=== PATIENT | female | born 1945 | race Caucasian/White ===

== ENCOUNTER 2019-12-16 11:37 | Outpatient (CLI) | payer MEDICARE, SELFPAY ==
--- NOTE | 2019-12-16 12:01 | XR_ITS ---
WS: [id number] RIGHT SHOULDER: 3 VIEW(S) TECHNIQUE: Internal and external rotation with Y view. HISTORY: PAIN IN RIGHT SHOULDER COMPARISON: None available. Mild narrowing of the AC joint. Bony hypertrophy from the distal inferior clavicle. Glenohumeral joint is negative. Mild thickening along the RIGHT minor fissure is stable. XR/XR shoulder RT min 2V* [id number] IMPRESSION: Mild AC joint arthritis.
== END 2019-12-16 11:38 | disposition home or self-care (01) ==
LOC: RADWPI 11:44
PROVIDERS: Family Provider Family Medicine; PCP Nurse Practitioner Family; Visit Provider Nurse Practitioner Family
DX: M19.011 Primary osteoarthritis, right shoulder (principal)
CPT/HCPCS: 73030

== ENCOUNTER 2020-01-21 11:01 | Outpatient (CLI) | payer MEDICARE, SELFPAY ==
--- NOTE | 2020-01-21 11:06 | XR_ITS ---
WS: [id number] SCREENING DEXA SCAN [employer] CLINICAL INFORMATION: POST MENOPAUSAL OSTEOPOROSIS COMPARISON: June 13, 2017 FINDINGS: The L1-L4 bone mineral density measures 0.926 g/cm2. This corresponds to a T score score of -2.1 and Z score of -1.5. Left femoral neck bone mineral density measures 0.846 g/cm2. This corresponds to a T score of -1.3 an d Z score of -0.4. Right femoral neck bone mineral density measures 0.832 g/cm2. This corresponds to a T score -1.4of an d Z score of -0.5. Mean femoral neck bone mineral density measures 0.839 g/cm2. This corresponds to a T score of -1.3 an d Z score of -0.4. XR/XR DEXA axial skeleton* [id number] IMPRESSION: Osteopenia Patient's FRAX calculated 10 year probability for major osteoporotic fracture i s 22.5 % and osteoporotic hip fracture is 12.2%. Bone mineral density in the lumbar spine has decreased -2.3% and decreased -4.6 % in the femoral necks since 2017.
--- NOTE | 2020-01-21 11:50 | MM_ITS ---
WS: [id number] Bilateral screening digital mammogram, 01/21/2020 Clinical Data: SCREENING Comparison: 06/13/2017. Findings: The breast parenchymal pattern shows fat replacement. No spiculated masses or clustered calcification s are seen. There are no secondary signs of carcinoma. Benign calcifications are in the right breast. MM/[place] [id number] Impression: 1. Negative bilateral mammogram unchanged. 2. Recommend annual screening mammograms. BIRADS: 1-Negative FOLLOW UP: 1 Year Follow-up The CAD card checker was used.
== END 2020-01-21 11:02 | disposition home or self-care (01) ==
LOC: RADSHAW 11:04
PROVIDERS: Family Provider Family Medicine; PCP Nurse Practitioner Family; Visit Provider Nurse Practitioner Family
DX: Z12.31 Encounter for screening mammogram for malignant neoplasm of breast (principal); Z13.820 Encounter for screening for osteoporosis; Z78.0 Asymptomatic menopausal state
CPT/HCPCS: 77067; 77080

== ENCOUNTER → 2020-11-25 09:09 | Outpatient (BNVA) | payer MEDICARE, SELFPAY | PROVIDERS: Family Provider Family Medicine; PCP Nurse Practitioner Family; Visit Provider Urology | DX: R31.29 Other microscopic hematuria (principal) | CPT/HCPCS: 81003; 88112 ==

== ENCOUNTER 2021-01-06 11:45 | Outpatient (CLI) | payer MEDICARE, SELFPAY ==
--- NOTE | 2021-01-06 12:00 | US_ITS ---
WS: [id number] RENAL ULTRASOUND HISTORY: FLANK PAIN COMPARISON: None available. TECHNIQUE: 2-D and color Doppler imaging of the kidney submitted. Right kidney: 10.6 cm x 4.1 cm x 4.7 cm. Normal echogenicity with no hydronephrosis or mass. Left kidney: 10.9 cm x 4.4 cm x 4.8 cm. Normal echogenicity with no hydronephrosis or mass. Aorta: Normal. Urinary Bladder: Normal distention. US/US renal BI* [id number] IMPRESSION: Normal renal ultrasound.
--- NOTE | 2021-01-06 12:45 | XR_ITS ---
WS: [id number] KUB, AP view, 01/06/2021 Clinical Data: FLANK PAIN Comparison: None. Findings: No abnormal intraabdominal masses or calcifications are seen. There is no dilatated small bowel or ev idence of obstruction. There are phleboliths in the true pelvis. There are clips in the right upper quadrant from a cholecys tectomy. XR/XR KUB [id number] Impression: Negative KUB.
== END 2021-01-06 11:46 | disposition home or self-care (01) ==
PROVIDERS: Visit Provider Urology
DX: R10.9 Unspecified abdominal pain (principal); R31.21 Asymptomatic microscopic hematuria
CPT/HCPCS: 74018; 76770; 81003

== ENCOUNTER → 2021-03-22 09:30 | Outpatient (BNVA) | payer MEDICARE, SELFPAY | PROVIDERS: PCP Family Medicine; Visit Provider Specialist | DX: Z96.651 Presence of right artificial knee joint (principal); M17.12 Unilateral primary osteoarthritis, left knee | CPT/HCPCS: 73560; 73565 ==

== ENCOUNTER → 2023-01-10 08:15 | Outpatient (BNVA) | payer MEDICARE, SELFPAY | PROVIDERS: PCP Family Medicine; Visit Provider Clinical Nurse Specialist Adult Health | DX: R35.0 Frequency of micturition (principal); N30.01 Acute cystitis with hematuria | CPT/HCPCS: 81000; 87077; 87086; 87184 ==

== ENCOUNTER 2023-02-28 14:57 | Outpatient (CLI) | payer MEDICARE, SELFPAY ==
--- NOTE | 2023-02-28 15:30 | CT_ITS ---
WS: [id number] CT ABDOMEN PELVIS TECHNIQUE: Noncontrast CT of the abdomen and pelvis with coronal and sagittal reformatted images. CLINICAL INFORMATION: left flank pain COMPARISON: Ultrasound January 06, 2021 DLP: 711.[address] scans at [facility] use at least one of these dose optimization techniques: automated e xposure control; mA and/or kV adjustment per patient size (includes targeted exams where dose is matc hed to clinical indication); or iterative reconstruction. FINDINGS: Sigmoid diverticulosis. Inflammatory stranding in the LEFT lower quadrant compatible with m ild acute diverticulitis. No drainable abscess or fluid collection. Subsegmental atelectasis in the lung bases. Cholecystectomy clips. Normal GE junction. Noncontrast li lang and spleen are normal. Normal noncontrast pancreas. Adrenal glands are normal. Pelvic phleboliths . No hydronephrosis in either kidney. No obstructing renal or ureteral calculi. Small esophageal hiat al hernia. A few tiny noncalcified nodules in the lingula and RIGHT lower lobe. Grade 1 anterolisthesis L4 on L5 . Severe central canal stenosis L4-L5. This can be further evaluated MRI. Prior hysterectomy. Enlarged RIGHT hepatic lobe with hepatomegaly. Diffuse transmural wall thickening involving the cecum and proximal ascending RIGHT colon suspicious for neoplasm. This has an unusual appearance and extends over approximately 9.7 cm. Consider lymphoma. Recommend further evaluation wit h colonoscopy. Associated luminal narrowing. No significant abdominal or pelvic lymphadenopathy. CT/CT kidney stone [id number] IMPRESSION: 1. Masslike diffuse wall thickening involving the cecum extending into the pro ximal ascending colon suspicious for neoplasm. This extends over approximately 9 cm with an unusual appearance. Consider lymphoma. Recommend further evaluatio n with colonoscopy. 2. Mild acute diverticulitis in the LEFT lower quadrant with a small amount of surrounding inflammatory stranding. No evidence of abscess or fluid collection . 3. Grade 1 anterolisthesis L4 on L5 with high-grade central canal stenosis. Th is can be further evaluated with MRI. 4. Hepatomegaly. 5. Prior hysterectomy and cholecystectomy. 6. No obstructing renal or ureteral calculi. No hydronephrosis. 7. Sigmoid diverticulosis. No evidence of acute diverticulitis. Message LEFT for Álvaro Alas MD at 03/01/2023 10:45 AM.
== END 2023-02-28 14:58 | disposition home or self-care (01) ==
LOC: RAD 14:59
PROVIDERS: PCP Family Medicine; Visit Provider Family Medicine
DX: R10.9 Unspecified abdominal pain (principal); K63.9 Disease of intestine, unspecified; K57.92 Diverticulitis of intestine, part unspecified, without perforation or abscess without bleeding; M48.061 Spinal stenosis, lumbar region without neurogenic claudication; R16.0 Hepatomegaly, not elsewhere classified; Z90.49 Acquired absence of other specified parts of digestive tract; Z90.710 Acquired absence of both cervix and uterus; K57.30 Diverticulosis of large intestine without perforation or abscess without bleeding
CPT/HCPCS: 74176; 80048; 84443

== ENCOUNTER 2023-03-15 15:48 | Outpatient (CLI) | payer MEDICARE, SELFPAY ==
--- NOTE | 2023-03-15 15:30 | CT_ITS ---
WS: [id number] CT LUMBAR SPINE TECHNIQUE: Noncontrast CT of the lumbar spine with coronal and sagittal reformatted images. CLINICAL INFORMATION: High-grade spinal stenosis on the CT of the abdomen COMPARISON: None. DLP: 686.[address] scans at [facility] use at least one of these dose optimization techniques: automated e xposure control; mA and/or kV adjustment per patient size (includes targeted exams where dose is matc hed to clinical indication); or iterative reconstruction. FINDINGS: Mild lumbar curve. No acute compression. Grade 1 anterolisthesis L4 on L5 measuring 5.8 mm. Severe ce ntral canal stenosis at this level due to disc bulging with facet arthropathy ligamentum flavum hyper trophy. Impingement on traversing L5 nerve roots bilaterally. Subsegmental atelectasis in the lung ba ses. L1-L2: Normal. L2-L3: Slight retrolisthesis. Mild annular bulging with mild central canal stenosis. Moderate facet a rthropathy ligamentum flavum hypertrophy. Small RIGHT foraminal protrusion with mild RIGHT foraminal narrowing. L3-L4: Mild annular bulging with moderate central canal stenosis. Moderate facet arthropathy ligament um flavum hypertrophy. Impingement traversing L4 nerve roots bilaterally. Mild LEFT foraminal narrowi ng. L4-L5: Grade 1 anterolisthesis. Severe central canal stenosis with facet arthropathy and ligamentum f lavum hypertrophy. Near complete effacement of the thecal sac. Mild disc bulging. Mild RIGHT greater than LEFT foraminal narrowing. L5-S1: Mild disc bulging with slight effacement of ventral thecal sac. Moderate facet arthropathy lig amentum flavum hypertrophy. Mild LEFT foraminal narrowing. Moderate facet arthropathy. Visualized pelvic bony structures: Normal. Paravertebral soft tissues: Normal. CT/CT lumbar spine wo con* [id number] IMPRESSION: 1. Grade 1 anterolisthesis L4 on L5 with severe central canal stenosis. Advanc ed facet arthropathy at this level with ligamentum flavum hypertrophy. 2. Moderate central canal stenosis L3-L4. 3. Mild central canal stenosis L2-L3. 4. Otherwise mild foraminal narrowing as described above. 5. Moderate to advanced facet arthropathy L3-L5 worse at L4-L5.
== END 2023-03-15 15:49 | disposition home or self-care (01) ==
PROVIDERS: PCP Family Medicine; Visit Provider Family Medicine
DX: M48.061 Spinal stenosis, lumbar region without neurogenic claudication (principal); M47.816 Spondylosis without myelopathy or radiculopathy, lumbar region
CPT/HCPCS: 72131

== ENCOUNTER → 2023-03-21 10:41 | Outpatient (BNVA) | payer MEDICARE, SELFPAY | PROVIDERS: PCP Family Medicine; Referring Provider Family Medicine; Visit Provider Orthopaedic Surgery | DX: M48.061 Spinal stenosis, lumbar region without neurogenic claudication (principal); M43.16 Spondylolisthesis, lumbar region | CPT/HCPCS: 72110; 99204 ==

== ENCOUNTER → 2023-03-22 08:43 | Outpatient (BNVA) | payer MEDICARE, SELFPAY | PROVIDERS: PCP Family Medicine; Visit Provider Specialist | DX: M17.11 Unilateral primary osteoarthritis, right knee (principal); Z96.651 Presence of right artificial knee joint | CPT/HCPCS: 73560; 73565; 99214 ==

== ENCOUNTER → 2023-05-16 10:53 | Outpatient (BNVA) | payer MEDICARE, SELFPAY | PROVIDERS: PCP Family Medicine; Visit Provider Family Medicine | DX: N39.0 Urinary tract infection, site not specified (principal); R50.9 Fever, unspecified | CPT/HCPCS: 80053; 81000; 85025 ==

== ENCOUNTER → 2023-12-27 10:18 | Outpatient (BNVA) | payer MEDICARE, SELFPAY | PROVIDERS: PCP Family Medicine; Visit Provider Family Medicine | DX: E03.9 Hypothyroidism, unspecified (principal); I10 Essential (primary) hypertension; K63.89 Other specified diseases of intestine | CPT/HCPCS: 80053; 84443; 85025 ==

== ENCOUNTER → 2024-08-20 13:06 | Outpatient (BNVA) | payer MEDICARE, SELFPAY | PROVIDERS: PCP Family Medicine; Visit Provider Family Medicine | DX: R30.0 Dysuria (principal) | CPT/HCPCS: 81000; 87086 ==

== ENCOUNTER 2025-01-09 12:40 | Outpatient (CLI) | payer MEDICARE, SELFPAY ==
--- NOTE | 2025-01-09 12:47 | XR_ITS ---
WS: [id number] XR chest 2V* [id number] REASON FOR EXAM: dyspnea FINDINGS: The chest is unchanged compared to 09/15/2017. Significant tortuosity and mild ectasia of the thoracic aorta. Normal heart size. Calcified granulomatous disease in both hemithoraces. No acute pulmonary parenchymal or pleural abnormality. Moderate kyphosis (secondary to old compression deformity of T5) with mild to moderate degenerative spondylosis of the thoracic spine. XR/XR chest 2V* [id number] IMPRESSION: Stable chest with no acute abnormality.
== END 2025-01-09 12:41 | disposition home or self-care (01) ==
LOC: RAD 12:43
PROVIDERS: PCP Family Medicine; Visit Provider Family Medicine
DX: R06.00 Dyspnea, unspecified (principal); I10 Essential (primary) hypertension; E03.9 Hypothyroidism, unspecified; Z00.00 Encounter for general adult medical examination without abnormal findings; I77.810 Thoracic aortic ectasia; D71 Functional disorders of polymorphonuclear neutrophils; M40.294 Other kyphosis, thoracic region; M47.894 Other spondylosis, thoracic region
CPT/HCPCS: 71046; 80053; 80061; 84443; 85025

== ENCOUNTER 2025-01-17 15:04 | Outpatient (CLI) | payer MEDICARE, SELFPAY ==
--- NOTE | 2025-01-17 15:30 | XR_ITS ---
WS: [id number] SCREENING DEXA SCAN [employer] CLINICAL INFORMATION: screening COMPARISON: 2019 FINDINGS: The L1-L4 bone mineral density measures 0.878 g/cm2. This corresponds to a T score score of -2.5 and Z score of -1.9. Left femoral neck bone mineral density measures 0.835 g/cm2. This corresponds to a T score of -1.4 and Z score of -0.2. Right femoral neck bone mineral density measures 0.838 g/cm2. This corresponds to a T score -1.3of and Z score of -0.2. Mean femoral neck bone mineral density measures 0.836 g/cm2. This corresponds to a T score of -1.4 and Z score of -0.2. XR/XR DEXA axial skeleton* [id number] IMPRESSION: Osteoporosis lumbar spine. Osteopenia femoral necks. Patient's FRAX calculated 10 year probability for major osteoporotic fracture i s 32.0% and osteoporotic hip fracture is 21.7%. Bone marrow density lumbar spine decreased -5.2% Bone mineral density femoral necks decreased -0.4%
== END 2025-01-17 15:05 | disposition home or self-care (01) ==
PROVIDERS: PCP Family Medicine; Visit Provider Family Medicine
DX: Z00.00 Encounter for general adult medical examination without abnormal findings (principal); R06.00 Dyspnea, unspecified; M81.0 Age-related osteoporosis without current pathological fracture; M85.88 Other specified disorders of bone density and structure, other site
CPT/HCPCS: 77080

== ENCOUNTER 2025-01-29 08:31 | Outpatient (RCR) | payer MEDICARE, SELFPAY | END 2025-02-03 23:59 | disposition home or self-care (01) | LOC: SPT 08:31 | PROVIDERS: PCP Family Medicine; Visit Provider Family Medicine | DX: M54.50 Low back pain, unspecified (principal); G89.29 Other chronic pain; M48.061 Spinal stenosis, lumbar region without neurogenic claudication | CPT/HCPCS: 97161 ==

== ENCOUNTER 2025-02-04 06:00 | Outpatient (RCR) | payer MEDICARE, SELFPAY | END 2025-03-05 23:59 | disposition home or self-care (01) | LOC: SPT 06:00 | PROVIDERS: PCP Family Medicine; Visit Provider Family Medicine | DX: M48.061 Spinal stenosis, lumbar region without neurogenic claudication (principal); M54.9 Dorsalgia, unspecified; G89.29 Other chronic pain | CPT/HCPCS: 97110 ==

== ENCOUNTER → 2025-03-05 11:08 | Outpatient (BNVA) | payer MEDICARE, SELFPAY | PROVIDERS: PCP Family Medicine; Visit Provider Specialist | DX: Z96.651 Presence of right artificial knee joint (principal) | CPT/HCPCS: 73560; 73565 ==

== ENCOUNTER 2025-03-05 12:08 | Outpatient (CLI) | payer MEDICARE, SELFPAY ==
--- NOTE | 2025-03-05 12:13 | XR_ITS ---
WS: [id number] Left knee, 3 views, 03/05/2025 Clinical Data: knee pain Comparison: Bilateral knees, 03/05/2025 Findings: No fractures or dislocations are seen. There is medial joint compartment narrowing. There is posterior patellar spurring with narrowing of the patellofemoral articulation. The soft tissues are unremarkable. XR/XR knee LT 3V* [id number] Impression: Mild osteoarthritis of the left knee.
== END 2025-03-05 12:09 | disposition home or self-care (01) ==
PROVIDERS: PCP Family Medicine; Visit Provider Family Medicine
DX: M17.12 Unilateral primary osteoarthritis, left knee (principal); M22.2X2 Patellofemoral disorders, left knee
CPT/HCPCS: 73562; 99213

== ENCOUNTER 2025-03-06 05:00 | Outpatient (RCR) | payer MEDICARE, SELFPAY | END 2025-04-05 23:55 | disposition home or self-care (01) | LOC: SPT 05:00 | PROVIDERS: PCP Family Medicine; Visit Provider Family Medicine | DX: M48.061 Spinal stenosis, lumbar region without neurogenic claudication (principal); G89.29 Other chronic pain | CPT/HCPCS: 97110 ==

== ENCOUNTER 2025-04-06 06:00 | Outpatient (RCR) | payer MEDICARE, SELFPAY | END 2025-04-15 12:46 | disposition home or self-care (01) | LOC: SPT 06:00 | PROVIDERS: PCP Family Medicine; Visit Provider Family Medicine | DX: M48.061 Spinal stenosis, lumbar region without neurogenic claudication (principal); M54.9 Dorsalgia, unspecified; G89.29 Other chronic pain | CPT/HCPCS: 97110 ==

== ENCOUNTER 2025-04-25 08:26 | Outpatient (CLI) | payer MEDICARE, SELFPAY ==
--- NOTE | 2025-04-25 08:40 | MM_ITS ---
WS: [id number] Bilateral screening 3D tomosynthesis digital mammogram, 04/25/2025 8:30 AM Clinical Data: Screening Comparison: 01/21/2020, 06/13/2017. Findings: No spiculated masses or clustered calcifications are seen. There are no secondary signs of carcinoma. There are benign calcifications in the right breast. MM/MM scr BI tomosynthesis [id number] Impression: Negative bilateral mammogram unchanged. Recommend annual screening mammograms. BIRADS: 1 - Negative. FOLLOW UP: 1 Year Follow-up DENSITY: The breasts are almost entirely fatty. The CAD die drawing checker was used
== END 2025-04-25 08:27 | disposition home or self-care (01) ==
PROVIDERS: PCP Family Medicine; Visit Provider Family Medicine
DX: Z00.00 Encounter for general adult medical examination without abnormal findings (principal); Z12.31 Encounter for screening mammogram for malignant neoplasm of breast
CPT/HCPCS: 77063; 77067

== ENCOUNTER → 2025-06-28 13:06 | Outpatient (BNVA) | payer MEDICARE, SELFPAY | PROVIDERS: PCP Family Medicine; Visit Provider Emergency Medicine | DX: R39.9 Unspecified symptoms and signs involving the genitourinary system (principal) | CPT/HCPCS: 81000 ==

== ENCOUNTER → 2025-07-04 09:30 | Outpatient (BNVA) | payer MEDICARE, SELFPAY | PROVIDERS: PCP Family Medicine; Visit Provider Emergency Medicine | DX: R39.9 Unspecified symptoms and signs involving the genitourinary system (principal); R35.0 Frequency of micturition | CPT/HCPCS: 81000; 87086 ==